=== PATIENT | male | born 1940 | race Caucasian/White ===

== ENCOUNTER 2019-07-25 08:34 | Emergency (ER) | payer OTHER ==
[2019-07-25 09:06] LABS: Absolute Lymphocytes (CBC) 1.9 K/uL (0.7-4.9); Basophils % 1.8 % (0-1.3); Hematocrit 47.7 % (39.6-49.0); Lymphocytes % 38.8 % (15.3-44.8); MPV 7.7 fL (7.6-11.3); RBC Red Blood Cell Count 5.07 M/uL (4.33-5.43)
[2019-07-25 09:10] LABS: Protime INR 1.4
--- NOTE | 2019-07-25 09:35 | RAD REPORT ---
EXAM DESCRIPTION: RAD - Chest Single View - 07/25/2019 9:08 am CLINICAL HISTORY: Chest pain COMPARISON: October 2018 TECHNIQUE: AP portable chest image was obtained 0902 hours . FINDINGS: Lungs are clear. No pulmonary edema. Interstitial pattern matches comparison. Heart size i s similar or fractionally increased from comparison. No vascular engorgement. No measurable pleural e ffusion and no pneumothorax. No acute bony abnormality seen. No acute aortic findings suspected. IMPRESSION: No acute cardiopulmonary process. No significant interval change.
[2019-07-25] MEDS ORDERED: NA CHLORIDE 0.9% 500 ML ONE (09:38)
[2019-07-25 10:07] LABS: ALT/SGPT 16 U/L (12-78); Albumin 3.9 g/dL (3.4-5.0); Alkaline Phosphatase 66 U/L (45-117); BUN Blood Urea Nitrogen 22 mg/dL (7-18); Bicarbonate 31 mmol/L (21-32); Bilirubin Direct 0.3 mg/dL (0-0.2); Glucose Level 114 mg/dL (74-106); Magnesium 2.4 mg/dL (1.8-2.4); NT PRO-BNP 263 pg/mL (<450); Sodium Level 140 mmol/L (136-145); Troponin (Emerg Dept Use Only) < 0.02 ng/mL (0.0-0.045)
[2019-07-25 10:08] LABS: AST/SGOT < 3 U/L (15-37)
--- NOTE | 2019-07-25 10:45 | RAD REPORT ---
EXAM DESCRIPTION: CT - Angio Aorta For Dissection - 07/25/2019 10:22 am CLINICAL HISTORY: . Chest and abdominal pain COMPARISON: None TECHNIQUE: Computed tomography angiography of the chest, abdomen pelvis were obtained. 100 cc Isovue 370 was administered intravenously. Coronal and sagittal reconstruction were performed. MIP 3D reconstruction was performed All CT scans are performed using dose optimization technique as appropriate and may include automated exposure control or mA/KV adjustment according to patient size. FINDINGS: An aortic dissection is not seen. A small bulge along the anterior aspect of the proximal descending thoracic aorta probably a ductus diverticulum. Mild arterial plaque. The celiac, SMA and TUCKER are patent . A lung consolidation is not present. A pericardial effusion is not seen. A pleural effusion is not n oted. Mild fatty infiltration liver. 4 centimeter low-density splenic mass unchanged. It probably is benign Pancreas adrenals kidneys demonstrate no significant abnormality. Diverticulosis. A 17 millimeter fatty structure lies adjacent to the proximal sigmoid colon. Prostate gland is mildly to moderately enlarged. Inguinal hernia repair IMPRESSION: Negative for an aortic dissection. 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
[2019-07-25 11:28] LABS: Urine Blood NEGATIVE (NEG); Urine Glucose NEGATIVE (NEG); Urine Protein NEGATIVE (NEG); Urine Specific Gravity 1.015 (1.005-1.030)
--- NOTE | 2019-07-25 12:57 | EDPHYS ---
Physician Documentation [facility] Name: Tani Serrano Age: 79 yrs Sex: Male : 1940 Arrival Date: 07/25/2019 Time: 08:36 Bed 5 Private MD: Edi Aponte V ED Physician Wisam De Leon HPI: 07/25 08:50 This 79 yrs old Male presents to ER via Unassigned with complaints of Chest snw Pain, Jaw Pain, Abdominal Pain. 08:50 Onset: The symptoms/episode began/occurred suddenly, this morning. Associated signs and snw symptoms: Pertinent positives: abdominal pain, chest pain. Modifying factors: The patient symptoms are alleviated by nothing. The patient has experienced similar episodes in the past, several times, but today's symptoms are worse, more painful. It is unknown whether or not the patient has recently seen a physician, sees Dr. Aponte. Sees Dr. Zuniga, recently placed on Eliquis. Dr. Aponte has urged pt to see GI for EGD. Historical: - Allergies: 08:45 No Known Allergies; ph - Home Meds: 08:53 Eliquis 5 mg oral tab 1 tab 2 times per day [Active]; CoQ-10 oral oral daily [Active]; iw - PSHx: 08:45 prostate; right shoulder; knee replacement, right; Appendectomy; ph 08:53 Cholecystectomy; iw - Immunization history:: Adult Immunizations not up to date. - Social history:: Smoking status: Patient/guardian denies using tobacco. - Ebola Screening: : No symptoms or risks identified at this time. ROS: 08:48 Constitutional: Negative for fever, chills, and weight loss, Eyes: Negative for injury, snw pain, redness, and discharge, ENT: Negative for injury, pain, and discharge, Neck: Negative for injury, pain, and swelling, Respiratory: Negative for shortness of breath, cough, wheezing, and pleuritic chest pain, Back: Negative for injury and pain, : Negative for injury, bleeding, discharge, and swelling, MS/Extremity: Negative for injury and deformity, Skin: Negative for injury, rash, and discoloration, Neuro: Negative for headache, weakness, numbness, tingling, and seizure. 08:48 Cardiovascular: Positive for chest pain, palpitations. 08:48 Abdomen/GI: Positive for abdominal pain, of the left upper quadrant. Exam: 08:48 Constitutional: This is a well developed, well nourished patient who is awake, alert, snw and in no acute distress. Head/Face: Normocephalic, atraumatic. Eyes: Pupils equal round and reactive to light, extra-ocular motions intact. Lids and lashes normal. Conjunctiva and sclera are non-icteric and not injected. Cornea within normal limits. Periorbital areas with no swelling, redness, or edema. ENT: Nares patent. No nasal discharge, no septal abnormalities noted. Tympanic membranes are normal and external auditory canals are clear. Oropharynx with no redness, swelling, or masses, exudates, or evidence of obstruction, uvula midline. Mucous membranes moist. Neck: Trachea midline, no thyromegaly or masses palpated, and no cervical lymphadenopathy. Supple, full range of motion without nuchal rigidity, or vertebral point tenderness. No Meningismus. Chest/axilla: Normal chest wall appearance and motion. Nontender with no deformity. No lesions are appreciated. Cardiovascular: Regular rate and rhythm with a normal S1 and S2. No gallops, murmurs, or rubs. Normal PMI, no JVD. No pulse deficits. Respiratory: Lungs have equal breath sounds bilaterally, clear to auscultation and percussion. No rales, rhonchi or wheezes noted. No increased work of breathing, no retractions or nasal flaring. 08:48 Back: No spinal tenderness. No costovertebral tenderness. Full range of motion. Skin: Warm, dry with normal turgor. Normal color with no rashes, no lesions, and no evidence of cellulitis. MS/ Extremity: Pulses equal, no cyanosis. Neurovascular intact. Full, normal range of motion. Neuro: Awake and alert, GCS 15, oriented to person, place, time, and situation. Cranial nerves II-XII grossly intact. Motor strength 5/5 in all extremities. Sensory grossly intact. Cerebellar exam normal. Normal gait. Psych: Awake, alert, with orientation to person, place and time. Behavior, mood, and affect are within normal limits. 08:48 Abdomen/GI: Inspection: abdomen appears normal, Bowel sounds: diminished, in all quadrants, Palpation: moderate abdominal tenderness, in the left upper quadrant. 08:52 ECG was reviewed by the Attending Physician. snw Vital Signs: 08:53 BP 150 / 69; Pulse 72; Resp 16; Temp 98.0; Pulse Ox 99% on R/A; Weight 97.52 kg; Height iw 6 ft. 4 in. (193.04 cm); Pain 5/10; 09:53 BP 132 / 62; Pulse 64; Resp 16; Pulse Ox 98% on R/A; Pain 3/10; ph 10:50 BP 128 / 66; Pulse 63; Resp 17; Pulse Ox 98% on R/A; tw2 11:52 BP 135 / 69; Pulse 71; Resp 22; Pulse Ox 96% on R/A; tw2 13:00 BP 126 / 68; Pulse 69; Resp 16; Temp 97.6; Pulse Ox 100% on R/A; ph 08:53 Body Mass Index 26.17 (97.52 kg, 193.04 cm) iw MDM: 09:05 Patient medically screened. snw 12:57 Data reviewed: vital signs, nurses notes. Data interpreted: Pulse oximetry: on room air snw is 96 %. Interpretation: acceptable. Counseling: I had a detailed discussion with the patient and/or guardian regarding: the historical points, exam findings, and any diagnostic results supporting the discharge/admit diagnosis, lab results, radiology results, the need for outpatient follow up, for definitive care, to return to the emergency department if symptoms worsen or persist or if there are any questions or concerns that arise at home. Special discussion: Based on the patient's history, exam, and Dx evaluation, there is no indication for emergent intervention or inpatient Tx. It is understood by the patient/guardian that if the Sx's persist or worsen they need to return immediately for re-evaluation. Based on the patient's Hx, exam, and Dx evaluation, there is no indication for emergent surgery or inpatient Tx. It is understood by the patient/guardian that if the Sx's persist or worsen they need to return immediately for re-evaluation. Based on the history and exam findings, there is no indication for further emergent testing or inpatient evaluation. I discussed with the patient/guardian the need to see the primary care provider for further evaluation of the symptoms. 07/25 08:38 Order name: Basic Metabolic Panel; Complete Time: 10:09 snw 07/25 08:38 Order name: CBC with Diff snw 07/25 08:38 Order name: LFT's; Complete Time: 10:09 snw 07/25 08:38 Order name: Magnesium; Complete Time: 10:09 snw 07/25 08:38 Order name: NT PRO-BNP; Complete Time: 10:09 snw 07/25 08:38 Order name: PT-INR snw 07/25 08:38 Order name: Troponin (emerg Dept Use Only); Complete Time: 10:09 snw 07/25 08:38 Order name: XRAY Chest (1 view); Complete Time: 09:53 snw 07/25 08:47 Order name: CT Aorta for Dissection; Complete Time: 10:59 snw 07/25 09:08 Order name: CBC with Automated Diff; Complete Time: 09:12 EDMS 07/25 09:13 Order name: Protime (+INR); Complete Time: 09:20 EDMS 07/25 11:13 Order name: Urine Dipstick--Ancillary (enter results); Complete Time: 11:35 eb 07/25 11:14 Order name: Troponin (emerg Dept Use Only): repeat trop please; Complete Time: 12:03 eb 07/25 08:38 Order name: EKG; Complete Time: 08:48 snw 07/25 08:38 Order name: Cardiac monitoring; Complete Time: 09:06 snw 07/25 08:38 Order name: EKG - Nurse/Tech; Complete Time: 09:06 snw 07/25 08:38 Order name: IV Saline Lock; Complete Time: 09:06 snw 07/25 08:38 Order name: Labs collected and sent; Complete Time: 09:06 snw 07/25 08:38 Order name: O2 Per Protocol; Complete Time: 09:06 snw 07/25 08:38 Order name: O2 Sat Monitoring; Complete Time: 09:06 snw 07/25 11:14 Order name: Diet Heart Healthy; Complete Time: 11:15 eb EC:52 Rate is 82 beats/min. Rhythm is irregular. QRS [place] is Normal. ID interval is normal. snw QRS interval is normal. QT interval is normal. ST Segment is depressed in leads V2, V3. Clinical impression: NSR w/ Non-specific ST/T Changes. Administered Medications: 09:52 Drug: NS 0.9% 1000 ml Route: IV; Rate: 50 ml/hr; Site: right forearm; ph 13:20 Follow up: Response: No adverse reaction; IV Status: Completed infusion; IV Intake: ph 175ml Disposition: 15:00 Co-signature as Attending Physician, Wisam De Leon MD. rn Disposition: 07/25/19 12:55 Discharged to Home. Impression: Upper abdominal pain, unspecified, Epiploic appendigitis, Chest pain, unspecified, Palpitations. - Condition is Stable. - Discharge Instructions: Abdominal Pain, Adult, Nonspecific Chest Pain, Palpitations, Upper Endoscopy. - Prescriptions for Gas- X Extra Strength - take 1 unit by ORAL route 1-2 times daily; 1 box. - Medication Reconciliation Form, Thank You Letter, Antibiotic Education, Prescription Opioid Use form. - Follow up: Edi Aponte MD; When: 2 - 3 days; Reason: Recheck today's complaints, Continuance of care, Re-evaluation by your physician. Follow up: Emergency Department; When: As needed; Reason: Trouble breathing. Signatures: Dispatcher [employer] EDMS Lilliam Carmen, INVESTIGATIVE RESEARCH SPECIALIST-C INVESTIGATIVE RESEARCH SPECIALIST-Csnw Connie Weller RN RN iw Nieto, Roman, MD MD rn Hall, Patricia, RN RN ph Corrections: (The following items were deleted from the chart) 13:23 12:55 07/25/2019 12:55 Discharged to Home. Impression: Upper abdominal pain, ph unspecified; Epiploic appendigitis; Chest pain, unspecified; Palpitations. Condition is Stable. Forms are Medication Reconciliation Form, Thank You Letter, Antibiotic Education, Prescription Opioid Use. Follow up: Edi Aponte; When: 2 - 3 days; Reason: Recheck today's complaints, Continuance of care, Re-evaluation by your physician. Follow up: Emergency Department; When: As needed; Reason: Trouble breathing. snw
--- NOTE | 2019-07-25 12:57 | ER ---
Nurse's Notes [facility] Name: Tani Serrano Age: 79 yrs Sex: Male : 1940 Arrival Date: 07/25/2019 Time: 08:36 Bed 5 Private MD: Edi Aponte V Diagnosis: Upper abdominal pain, unspecified;Epiploic appendigitis;Chest pain, unspecified;Palpitations Presentation: 07/25 08:49 Presenting complaint: Patient states: woke up out of sleep about 5 am felt like his heart as racing and skipping , also is having left sided abd pain that is chronic. Transition of care: patient was not received from another setting of care. Onset of symptoms was July 25, 2019. Risk Assessment: Do you want to hurt yourself or someone else? Patient reports no desire to harm self or others. Initial Sepsis Screen: Does the patient meet any 2 criteria? No. Patient's initial sepsis screen is negative. Does the patient have a suspected source of infection? No. Patient's initial sepsis screen is negative. Care prior to arrival: None. 08:49 Method Of Arrival: Wheelchair iw 08:49 Acuity: YOJANA 3 iw Historical: - Allergies: 08:45 No Known Allergies; ph - Home Meds: 08:53 Eliquis 5 mg oral tab 1 tab 2 times per day [Active]; CoQ-10 oral oral daily [Active]; iw - PSHx: 08:45 prostate; right shoulder; knee replacement, right; Appendectomy; ph 08:53 Cholecystectomy; iw - Immunization history:: Adult Immunizations not up to date. - Social history:: Smoking status: Patient/guardian denies using tobacco. - Ebola Screening: : No symptoms or risks identified at this time. Screenin:44 Abuse screen: Denies threats or abuse. Denies injuries from another. Nutritional ph screening: No deficits noted. Tuberculosis screening: No symptoms or risk factors identified. 08:53 Fall Risk None identified. iw Assessment: 09:02 General: Appears in no apparent distress. comfortable, slender, well groomed, Behavior ph is calm, cooperative, appropriate for age, Denies fever, feeling ill. Pain: Complains of pain in chest and abdomen Pain radiates to left jaw Pain currently is 2 out of 10 on a pain scale. Quality of pain is described as sharp, Pain began at approx 0530 this morning Is intermittent. Neuro: Level of Consciousness is awake, alert, obeys commands, Oriented to person, place, time, situation, Denies weakness dizziness. Cardiovascular: Reports chest pain, palpitations, Denies nausea, shortness of breath, Capillary refill < 3 seconds in bilateral fingers Patient's skin is warm and dry. Rhythm is atrial fibrillation Chest pain quality is sharp, is located in left anterior chest wall radiates to left jaw(s) began 4 hours prior to arrival episodes are intermittent. Respiratory: Airway is patent Respiratory effort is even, unlabored, Respiratory pattern is regular, symmetrical, Denies cough, shortness of breath. GI: Reports upper abdominal pain, Patient currently denies diarrhea, nausea, vomiting. Derm: Skin is intact, is healthy with good turgor, Skin is pink, warm \T\ dry. Musculoskeletal: Circulation, motion, and sensation intact. Range of motion: intact in all extremities. 09:52 Reassessment: Patient appears in no apparent distress at this time. Patient and/or family updated on plan of care and expected duration. Pain level reassessed. Patient is alert, oriented x 3, equal unlabored respirations, skin warm/dry/pink. Pt resting comfortably w/ stable vitals, continues to rate pain 3/10, denies SOB or nausea, awaiting lab results, SO at bedside. 10:50 Reassessment: Patient appears in no apparent distress at this time. No changes from tw2 previously documented assessment. Patient and/or family updated on plan of care and expected duration. Pain level reassessed. Patient is alert, oriented x 3, equal unlabored respirations, skin warm/dry/pink. 11:52 Reassessment: Patient appears in no apparent distress at this time. No changes from tw2 previously documented assessment. Patient and/or family updated on plan of care and expected duration. Pain level reassessed. Patient is alert, oriented x 3, equal unlabored respirations, skin warm/dry/pink. 11:54 Reassessment: Awaiting results of repeat cardiac enzymes. ph Vital Signs: 08:53 BP 150 / 69; Pulse 72; Resp 16; Temp 98.0; Pulse Ox 99% on R/A; Weight 97.52 kg; Height iw 6 ft. 4 in. (193.04 cm); Pain 5/10; 09:53 BP 132 / 62; Pulse 64; Resp 16; Pulse Ox 98% on R/A; Pain 3/10; ph 10:50 BP 128 / 66; Pulse 63; Resp 17; Pulse Ox 98% on R/A; tw2 11:52 BP 135 / 69; Pulse 71; Resp 22; Pulse Ox 96% on R/A; tw2 13:00 BP 126 / 68; Pulse 69; Resp 16; Temp 97.6; Pulse Ox 100% on R/A; ph 08:53 Body Mass Index 26.17 (97.52 kg, 193.04 cm) iw ED Course: 08:36 Patient arrived in ED. mr 08:36 Edi Aponte MD is Private Physician. mr 08:38 Lilliam Carmen FNP-C [facility]. snw 08:38 Wisam De Leon MD is Attending Physician. snw 08:44 Temitope Vicente, RN is Primary Nurse. ph 08:46 Patient has correct armband on for positive identification. Placed in gown. Bed in low ph position. Call light in reach. Side rails up X 1. ekg monitor tech on. Pulse ox on. NIBP on. Door closed. Noise minimized. Warm blanket given. 08:51 Triage completed. iw 08:53 Arm band placed on. iw 08:55 EKG done, by certified medical technician assistant. reviewed by Lilliam SAINI. at1 09:02 Initial lab(s) drawn, by va, sent to lab. Inserted saline lock: 20 gauge in right ph forearm, using aseptic technique. Blood collected. Patient maintains SpO2 saturation greater than 95% on room air. 09:31 XRAY Chest (1 view) In Process Unspecified. EDMS 10:23 CT Aorta for Dissection In Process Unspecified. EDMS 12:53 Edi Aponte MD is Referral Physician. snw 13:00 No provider procedures requiring assistance completed. IV discontinued, intact, ph bleeding controlled, No redness/swelling at site. Pressure dressing applied. Administered Medications: 09:52 Drug: NS 0.9% 1000 ml Route: IV; Rate: 50 ml/hr; Site: right forearm; ph 13:20 Follow up: Response: No adverse reaction; IV Status: Completed infusion; IV Intake: ph 175ml Intake: 13:20 IV: 175ml; Total: 175ml. ph Outcome: 12:55 Discharge ordered by MD. chavis 13:23 Patient left the ED. ph 13:23 Discharged to home ambulatory, with significant other. ph 13:23 Condition: good 13:23 Discharge instructions given to patient, Instructed on discharge instructions, follow up and referral plans. medication usage, Demonstrated understanding of instructions, follow-up care, medications, Prescriptions given X 1. Signatures: Dispatcher [employer] EDMS Lilliam Carmen, CONCRETE GUN OPERATOR-C CONCRETE GUN OPERATOR-Csnw Justino Dinora Connie Mercdao, RN RN iw Lakeisha Perez, mannequin mold maker EKG Tat1 Temitope Vicente RN RN Ange Pyle RN RN tw2 Corrections: (The following items were deleted from the chart) 14:30 14:29 IV Status: Completed infusion; IV Intake: 175ml ph ph 14:30 14:30 Response: No adverse reaction; IV Status: Completed infusion; IV Intake: 175ml ph ph
[2019-07-25 13:36] VITALS: TEMP 98
[2019-07-25 13:40] VITALS: BP 135/69; O2SAT 96
--- NOTE | 2019-07-25 16:35 | EKG ---
Test Date: 2019-07-25 Test Time: 08:51:42 Key Filer: ANGEL MEASUREMENT RESULTS: Intervals: Rate: 82 SD: 152 QRSD: 88 QT: 392 QTc: 457 [place]: P: 76 SD: 152 QRS: 53 T: 63 INTERPRETIVE STATEMENTS: Sinus rhythm with marked sinus arrhythmia Nonspecific ST and T wave abnormality Abnormal ECG Compared to ECG 09/19/2005 22:50:00 ST (T wave) deviation now present Sinus bradycardia no longer present Electronically Signed On 07-25-19 16:33:53 LOCOMOTIVE CRANE OPERATOR by Tae Brice
== END 2019-07-25 13:23 | disposition home or self-care (01) ==
LOC: ER 08:34
DX: R07.9 Chest pain, unspecified (principal); R00.2 Palpitations; K63.89 Other specified diseases of intestine; R10.10 Upper abdominal pain, unspecified
CPT/HCPCS: 96361; 93005; 85025; 80048; 36415; 83735; 85610; 80076; 81003; 84484 ×2; 83880; 71275; 74175; 71045; 96360; 99285; Q9967; J7040

== ENCOUNTER 2019-08-15 06:56 | Day surgery (SDC) | payer OTHER ==
[2019-08-14 11:39] LABS: Absolute Lymphocytes (CBC) 1.8 K/uL (0.7-4.9); Basophils % 1.2 % (0-1.3); Hematocrit 51.9 % (39.6-49.0); MPV 7.9 fL (7.6-11.3); RBC Red Blood Cell Count 5.58 M/uL (4.33-5.43)
[2019-08-14 11:46] LABS: Protime INR 1.44
[2019-08-14 11:47] LABS: Potassium 4.6 mmol/L (3.5-5.1)
[2019-08-15] MEDS ORDERED: NA CHLORIDE 0.9% 500 ML ONE (07:21)
[2019-08-15] MEDS ORDERED: FLUMAZENIL 0.1 MG/ML (5 mL VIAL) IV ONE (07:51)
[2019-08-15] MEDS ORDERED: MIDAZOLAM HCL 5 MG/5 ML INJ ONE (07:51)
[2019-08-15] MEDS ORDERED: ATROPINE SULF 1 MG/10 ML SYR IV ONE (07:51)
[2019-08-15] MEDS ORDERED: DRONEDARONE 400 MG TAB PO ONE (08:01)
[2019-08-15 09:46] VITALS: BP 111/74; TEMP 97.2; O2SAT 98
--- NOTE | 2019-08-15 12:17 | EKG ---
Test Date: 2019-08-15 Test Time: 09:06:11 Appeals Analyst: ANGEL MEASUREMENT RESULTS: Intervals: Rate: 74 VT: 168 QRSD: 90 QT: 418 QTc: 463 [place]: P: 73 VT: 168 QRS: 49 T: 61 INTERPRETIVE STATEMENTS: Sinus rhythm with premature atrial complexes Otherwise normal ECG Compared to ECG 07/25/2019 08:51:42 Atrial premature complex(es) now present Sinus arrhythmia no longer present ST (T wave) deviation no longer present Electronically Signed On 08-15-19 12:16:35 ADMISSIONS EVALUATOR by Mike Zuniga
--- NOTE | 2019-08-15 17:55 | OP ---
Surgeon: Mike Zuniga MD Identification: 79-year-old man. Procedure: Direct current cardioversion. Indication: Atrial fibrillation. History Of Present Illness: The patient had been in AFib for several weeks. He has been on Eliquis 5 mg twice a day for at least 2 weeks. He was brought to the cardiac sanitation laborer in a fasting state, se dated with Versed 7 mg total was used. Adequate sedation was demonstrated. Anterior and posterior p addles were placed in the patient's chest. A single shock of 200 joules was given synchronized to th e QRS complex. This resulted in sinus rhythm with no complications. LOUIS/CARA Voice ID: [id number] Report ID: [id number]
== END 2019-08-15 09:40 | disposition home or self-care (01) ==
LOC: CCL 06:56
PROVIDERS: ATTEND Internal Medicine
PROC: 5A2204Z Restoration of Cardiac Rhythm, Single (ICD-10-PCS; principal; 2019-08-15)
DX: I48.0 Paroxysmal atrial fibrillation (principal); I25.10 Atherosclerotic heart disease of native coronary artery without angina pectoris
CPT/HCPCS: 93005; 85025; 80048; 36415; 85610; 85730; 92960; J2250; J7040

== ENCOUNTER 2020-09-13 06:28 | Day surgery (SDC) | payer OTHER ==
[2020-09-10 10:41] LABS: Potassium 3.9 mmol/L (3.5-5.1)
[2020-09-10 10:50] LABS: Absolute Lymphocytes (CBC) 1.6 K/uL (0.7-4.9); Basophils % 1.7 % (0-1.3); Lymphocytes % 39.6 % (15.3-44.8); MPV 7.4 fL (7.6-11.3)
[2020-09-10 11:02] LABS: Protime INR 1.29
--- NOTE | 2020-09-10 12:29 | RAD REPORT ---
EXAM DESCRIPTION: RAD - Chest Pa And Lat (2 Views) - 09/10/2020 11:47 am CLINICAL HISTORY: preop, pending cardiac catheterization COMPARISON: Portable July 2019 TECHNIQUE: Frontal and lateral views of the chest were obtained. FINDINGS: The lungs are clear of an acute infiltrate, failure or volume overload finding. Interstiti al pattern matches comparison. Heart size is normal and central vasculature is within normal limits . No pleural effusion or pneumothorax seen. No acute bony finding noted. No aortic abnormality. IMPRESSION: No acute cardiopulmonary process. No significant change from comparison.
--- OUTSIDE RECORDS SUMMARY | 2020-09-13 06:31 | XMS REPORT | Continuity of Care Document ---
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[facility] spondylosis Neuro (disorder) Spinal stenosis Active Problem 01/02/2019 Mis ayde of lumbar region Angus ro (disorder) Medications No Data Provided for This Section Allergies, Adverse Reactions, Alerts Substance Category Reaction Severity Reaction Status Date Comments S ource type Reported No Known Assertion Drug Misch er Medication allergy Neuro Allergies Immunizations No Data Provided for This Section Results No Data Provided for This Section Pathology Reports No Data Provided for This Section Diagnostic Reports No Data Provided for This Section Consultation Notes No Data Provided for This Section Discharge Summaries No Data Provided for This Section History and Physicals No Data Provided for This Section Vital Signs No Data Provided for This Section Encounters Location Location Encounter Encounter Reason Attending ADM [facility] Source Details Type Number For Provider Date Date Visit Outpatient [id number] CANADIAN 04/12 Formerly named [facility] [place] [facility] Phone [phone] 09/13 09/15 [facility] Neuro Outpatient [id number] DONY 06/14 [facility] [place] [facility] Outpatient [id number] Dony 06/14 06/15 [facility] [place] Procedures Procedure Code Date Perfomer Comments Source Appendectomy [id number] [facility] Neur o Arthroplasty of [id number] [facility] N euro knee Procedure on [id number] [facility] Ne[facility] o shoulder Repair of inguinal [id number] [facility] r Neuro hernia Transurethral [id number] [facility] Angus ro resection of prostate Assessment and Plan No Data Provided for This Section Plan of Care No Data Provided for This Section Social History Social History Date Source Social History TypeResponse 02/10/2016 [facility] Smoking Status Never smoker; Exposure to Tobacco Smoke None; Cigarette Smoking Last 365 Days No; Reg Smoking Cessation Counseling No entered on: 02/10/16 Family History No Data Provided for This Section Advance Directives No Data Provided for This Section Functional Status No Data Provided for This Section
--- OUTSIDE RECORDS SUMMARY | 2020-09-13 06:31 | XMS REPORT | Clinical Summary ---
:1940 Author Organization [facility] Address [address] [place] [address] Care Team Providers Name Role Phone MD Fay Primary Care Provider Allergies No Known Active Allergies Medications Medication Sig Dispensed Refills Start Date End Date Status naproxen-esomeprazole Take by mouth. 0 Active 500-20 mg tablet,IR & delay rel,biphasic ibuprofen-famotidine Take by mouth. 0 Active 800-26.6 mg tablet gabapentin enacarbil 300 Take by mouth. 0 Active mg tablet extended release gabapentin (GRALISE) 600 Take by mouth. 0 Active mg tablet extended release 24 hr aspirin (ECOTRIN) 81 MG Take 81 mg by 0 Active enteric coated tablet mouth daily. rosuvastatin (CRESTOR) 0 2019 Active 20 MG tablet Active Problems Problem Noted Date Colon cancer screening 06/16/2019 Diverticulosis Left lower quadrant pain Surgical History Surgery Date Site/Laterality Comments KNEE SURGERY SHOULDER SURGERY CARPAL TUNNEL RELEASE COLONOSCOPY INGUINAL HERNIA REPAIR EYE SURGERY ARM SKIN LESION BIOPSY / EXCISION Medical History Medical History Date Comments Colon cancer screening Hiatus hernia syndrome Diverticulosis Left lower quadrant pain Family History Relation Name Status Comments Father Mother Social History Tobacco Use Types Packs/Day Years Used Date Never Smoker Smokeless Tobacco: Never Used Alcohol Use Drinks/Week oz/Week Comments Not Currently Sex Assigned at Date Recorded Not on file Last Filed Vital Signs Not on file Plan of Treatment Health Maintenance Due Date Last Done Comments COVID-19 VACCINE (1 of 2) 1956 SHINGLES VACCINES (#1) 1990 65+ PNEUMOCOCCAL VACCINE (1 of 1 - PPSV23) 2005 INFLUENZA VACCINE 03/06/2020 Results Not on fileafter 09/13/2019 (Home) [place] [address] Advance Directives For more information, please contact: [phone] Type Date Recorded Patient Die Baker Explanati on Advance Directives, Living Will and 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
[2020-09-13] MEDS ORDERED: HEPA 1000U/500MLS 1,000 UNIT/500 ML BAG IV ONE (06:55)
[2020-09-13] MEDS ORDERED: LIDOCAINE 1% 20 ML MDV ONE (06:55)
[2020-09-13] MEDS ORDERED: NA CHLORIDE 0.9% 500 ML ONE (07:04)
[2020-09-13] MEDS ORDERED: FENTANYL CITR 100 MCG/2 ML ONE (07:37)
[2020-09-13] MEDS ORDERED: MIDAZOLAM HCL 2 MG/2 ML INJ ONE ×2 (07:37→07:58)
[2020-09-13] MEDS ORDERED: ATROPINE SULF 1 MG/10 ML SYR IV ONE (07:38)
[2020-09-13] MEDS ORDERED: NA CHLORIDE 0.9% 0 ML ONE (07:38)
--- NOTE | 2020-09-13 08:28 | OP ---
Surgeon: Tae Brice MD Docent Coordinator: Dianna Lombardi. Procedure: Left heart catheterization and selective coronary arteriogram. Indication: Unstable angina. Procedure In Detail: Mr. Serrano is 80-year-old, has a history of paroxysmal atrial fibrillation, for which he takes Coreg and Eliquis. His Eliquis was stopped couple of days ago. He had symptoms consi stent with unstable angina. A catheterization was planned for today as an outpatient. The patient w as prepped and draped in the routine sterile fashion, given Versed for sedation. A 6-Bulgarian sheath w as introduced in the right common femoral artery successfully using the Seldinger technique, 10 cc of Xylocaine. Angiography there was normal. Angio-Seal was used to close the case. Mi catheter left and right were used to cannulate the left main and right main respectively. He was found to hav e about a 40-50% mid RCA stenosis with 30-40% proximal and mid LAD stenosis, 70% distal LAD stenosis, and a vessel that is about 1.5 mm in size, an 80% OM stenosis, small vessel and 99% diagonal small v essel. The left main was normal. The actual circumflex itself was normal. He was right dominant. There were no complications. Blood loss was 5 mL. The patient tolerated the procedure well. Postoperative Diagnosis: Moderate to severe coronary artery disease. Plan: Plan is for medical therapy. I am going to re-discuss the issue of statin with the patient. If he is truly allergic to it, we will put him on Repatha. I am going to put him on Imdur. I am goi ng to increase his carvedilol. Continue the Eliquis starting tomorrow. The patient will be at [facility] for 2 hours. Anesthesia: Total conscious sedation was 45 minutes. NB/MODL Voice ID: [id number] Report ID: [id number]
[2020-09-13 09:48] VITALS: BP 112/67; TEMP 96.9; O2SAT 100
== END 2020-09-13 10:18 | disposition home or self-care (01) ==
LOC: CCL 06:28
DX: I25.110 Atherosclerotic heart disease of native coronary artery with unstable angina pectoris (principal); I48.0 Paroxysmal atrial fibrillation; Z79.01 Long term (current) use of anticoagulants; Z20.822 Contact with and (suspected) exposure to COVID-19; I34.1 Nonrheumatic mitral (valve) prolapse; E78.2 Mixed hyperlipidemia
CPT/HCPCS: 85025; 80048; 36415; 85610; 85730; 71046; 93454; U0002; C1893; C1760; J2250; J3010; J7040; J1644; J0583

== ENCOUNTER 2022-03-09 06:30 | Day surgery (SDC) | payer OTHER ==
--- NOTE | 2022-03-03 11:02 | RAD REPORT ---
EXAM DESCRIPTION: RAD - Chest Pa And Lat (2 Views) - 03/03/2022 10:56 am CLINICAL HISTORY: pre procedure COMPARISON: Chest Pa And Lat (2 Views) dated 09/10/2020; Chest Single View dated 07/25/2019; Chest Pa And Lat (2 Views) dated 10/28/2018; Chest Pa And Lat (2 Views) dated 02/25/2016 FINDINGS: Lines: None. Lungs: No evidence of edema or pneumonia. Pleural: No significant pleural effusions or pneumothorax. Cardiac: The heart size is within normal limits. Bones: No acute fractures. Other: IMPRESSION: No acute cardiopulmonary disease.
[2022-03-03 12:00] LABS: Absolute Lymphocytes (CBC) 1.5 K/uL (0.7-4.9); Hematocrit 43.2 % (39.6-49.0); Lymphocytes % 39.8 % (15.3-44.8); MCV 94.1 fL (80-100); MPV 7.5 fL (7.6-11.3); RBC Red Blood Cell Count 4.59 M/uL (4.33-5.43)
[2022-03-03 12:09] LABS: Protime INR 1.57
[2022-03-03 12:14] LABS: Potassium 4.6 mmol/L (3.5-5.1)
[2022-03-03 12:31] LABS: SARS-CoV-2 Antigen Rapid Res Negative (Negative)
[2022-03-09] MEDS ORDERED: HEPA 1000U/500MLS 2,000 UNIT/1,000 ML BAG IV ONE (06:48)
[2022-03-09] MEDS ORDERED: NA CHLORIDE 0.9% 500 ML ONE (06:48)
[2022-03-09] MEDS ORDERED: LIDOCAINE 1% MPF 5 ML VIAL ONE (06:48)
[2022-03-09] MEDS ORDERED: MIDAZOLAM HCL 2 MG/2 ML INJ ONE (07:01)
[2022-03-09] MEDS ORDERED: FENTANYL CITR 100 MCG/2 ML ONE (07:01)
[2022-03-09] MEDS ORDERED: NA CHLORIDE 0.9% 50 ML IV ONE (07:02)
[2022-03-09] MEDS ORDERED: ATROPINE SULF 1 MG/10 ML SYR IV ONE (07:02)
[2022-03-09] MEDS ORDERED: NITROGLYCERIN 100 MCG/ML SYR (for cath lab use only) IV ONE (07:02)
[2022-03-09] MEDS ORDERED: NITROGLYCERIN/D5W 25 MG/250 ML BTL IV ONE (07:03)
[2022-03-09] MEDS ORDERED: PRASUGREL (EFFIENT) 10 MG TAB ONE (08:04)
[2022-03-09] MEDS ORDERED: ASPIRIN 325 MG TAB ONE (08:04)
--- NOTE | 2022-03-09 08:45 | OP ---
Surgeon: Tae Brice MD Benefits Representative: Ms. Liya Altamirano. The patient will go home after 2 hours of bedrest and observation early afternoon. I will see him in the office in 2 weeks. He will resume his Eliquis tomorrow. A prescription for Plavix was given as well. Admitted to my service as an outpatient today 03/09/2022. He underwent left heart catheterization, s elective coronary arteriogram, common femoral artery angiogram, and primary stent of the mid LAD. Indication: Unstable angina. Mr. Serrano is 81. Has had paroxysmal AFib, hypertension, dyslipidemia, held his Eliquis for 48 hours. Procedure In Detail: Brought to the skilled labor today as an outpatient, prepped and draped in routine s terile fashion. Given Versed and fentanyl for sedation. A 6-Belarusian sheath introduced in the right c ommon femoral artery successfully using 10 cc of Xylocaine and the Seldinger technique. Angiography there was normal. Angio-Seal was used to close the case. Coronary catheterization of the left main and the right main were done using Mi catheter. The RCA was dominant with minor plaquing throug hout. No focal stenosis. Circumflex itself was normal. There was a 70% ostial medium-size obtuse m arginal lesion. The LAD had about a 30% to 40% proximal stenosis. He had an 80% mid LAD stenosis, a bout a 40% to 50% very distal LAD stenosis. We decided to intervene with the LAD. An XBLAD 3.5 guid e with side hole was used to cannulate the left main. A Humphrey wire was used to cross the lesion suc cessfully. A 3.0 x 20 Synergy was placed in the lesion at 11 atmospheres for 30 seconds with 0% resi dual. Intracoronary nitroglycerin was given. Angiography was perfectly normal after the stent. The re were no dissection or thrombus. The patient received Angiomax, aspirin, and Effient during the pr ocedure. Anesthesia: Total conscious sedation 45 minutes. Complications: No complication. Blood Loss: 5 mL. Postoperative Diagnosis: Coronary artery disease, status post successful primary stent of the mid LA D. The rest will be medical therapy. NB/MODL Voice ID: [id number] Report ID: [id number]
[2022-03-09 14:21] VITALS: O2SAT 99
[2022-03-09 15:20] VITALS: BP 118/56
== END 2022-03-09 15:00 | disposition home or self-care (01) ==
LOC: CCL 06:30
DX: I25.110 Atherosclerotic heart disease of native coronary artery with unstable angina pectoris (principal); I34.1 Nonrheumatic mitral (valve) prolapse; I48.0 Paroxysmal atrial fibrillation; I10 Essential (primary) hypertension; E78.2 Mixed hyperlipidemia; Z79.01 Long term (current) use of anticoagulants; Z79.899 Other long term (current) drug therapy; Z20.822 Contact with and (suspected) exposure to COVID-19; Z82.49 Family history of ischemic heart disease and other diseases of the circulatory system
CPT/HCPCS: 85025; 80048; 36415; 85610; 85347 ×4; 85730; 71046; 93454; 87811; C1893; C1760; Q9967; G0269; C1725; C1877; C9600; J2250; J3010; J0583; J7040; J1644

== ENCOUNTER 2023-01-01 08:31 | Observation (INO) | payer OTHER ==
[2023-01-01 08:57] LABS: Absolute Lymphocytes (CBC) 1.2 K/uL (0.7-4.9); Hematocrit 45.2 % (39.6-49.0); Lymphocytes % 25.5 % (15.3-44.8); MCV 95.1 fL (80-100); MPV 7.2 fL (7.6-11.3); RBC Red Blood Cell Count 4.75 M/uL (4.33-5.43)
[2023-01-01 09:02] LABS: Protime INR 1.55
[2023-01-01 09:24] LABS: Albumin 3.7 g/dL (3.4-5.0); Bilirubin Direct 0.2 mg/dL (0-0.2); Bilirubin Indirect, Calculated 0.7 mg/dL (0.2-0.8); Bilirubin Total 0.9 mg/dL (0.2-1.0); Magnesium 2.3 mg/dL (1.6-2.4); Potassium 3.7 mEq/L (3.5-5.1); Protein, Total 7.6 g/dL (6.4-8.2); Troponin High Sensitivity 24.8 pg/mL (<58.9)
--- NOTE | 2023-01-01 09:32 | ER ---
Nurse's Notes [facility] Name: Tani Serrano Age: 82 yrs Sex: Male : 1940 Arrival Date: 01/01/2023 Time: 08:31 Bed 5 Private MD: Diagnosis: Chest pain, unspecified Presentation: 01/01 08:35 Chief complaint: Patient states: CP and R sided jaw/neck pain for several days, got ll1 worse last night. Coronavirus screen: Vaccine status: Patient reports receiving the 2nd dose of the covid vaccine. Client denies travel out of the [place] in the last 14 days. At this time, the client does not indicate any symptoms associated with coronavirus-19. Ebola Screen: Patient denies travel to an Ebola-affected area in the 21 days before illness onset. Initial Sepsis Screen: Does the patient meet any 2 criteria? No. Patient's initial sepsis screen is negative. Does the patient have a suspected source of infection? No. Patient's initial sepsis screen is negative. Risk Assessment: Do you want to hurt yourself or someone else? Patient reports no desire to harm self or others. Onset of symptoms was December 29, 2022. 08:35 Method Of Arrival: Ambulatory ll1 08:35 Acuity: YOJANA 3 ll1 Triage Assessment: 08:50 General: Appears in no apparent distress. Behavior is calm, cooperative, appropriate ll1 for age. Pain: Complains of pain in Chest, R jaw Quality of pain is described as pressure. Cardiovascular: Reports chest pain, palpitations, pain radiates into R jaw/neck area Heart tones S1 S2 Capillary refill < 3 seconds JVD is absent Patient's skin is warm and dry. Respiratory: Airway is patent Trachea midline Respiratory effort is even, unlabored, Respiratory pattern is regular, symmetrical. Historical: - Allergies: 08:44 No Known Allergies; ll1 - PMHx: 08:44 A fib HX; ll1 - PSHx: 08:44 A fib cardioversion; R shoulder SX with 5 pins; hernia repair; TURP; heart stent; ll1 - Immunization history:: Adult Immunizations up to date. - Social history:: Smoking status: Patient denies any tobacco usage or history of. - Family history:: not pertinent. - Hospitalizations: : No recent hospitalization is reported. Screenin:51 [facility] Fall Risk Assessment (Adult) Score/Fall Risk Level 0 - 2 = Low Risk ll1 Oriented to surroundings, Maintained a safe environment, Educated pt \T\ family on fall prevention, incl call for assistance when getting out of bed, Hourly rounding (assess needs \T\ fall precautionary measures) done. Abuse screen: Denies threats or abuse. Nutritional screening: No deficits noted. Tuberculosis screening: No symptoms or risk factors identified. Assessment: 08:51 Reassessment: No changes from previously documented assessment. Patient and/or family ll1 updated on plan of care and expected duration. Pain level reassessed. Patient is alert, oriented x 3, equal unlabored respirations, skin warm/dry/pink. 08:57 Reassessment: No changes from previously documented assessment. Patient and/or family ll1 updated on plan of care and expected duration. Pain level reassessed. 09:40 Reassessment: No changes from previously documented assessment. Patient and/or family ll1 updated on plan of care and expected duration. Pain level reassessed. Dr. De Leon at . Vital Signs: 08:35 BP 143 / 82; Pulse 82; Resp 16; Temp 97.9; Pulse Ox 100% on R/A; Weight 95.25 kg; ll1 Height 6 ft. 4 in. ; Pain 5/10; 10:11 BP 112 / 78; Pulse 72; Pulse Ox 99% on R/A; ll1 14:10 BP 114 / 83; Pulse 80; Resp 15; Pulse Ox 100% ; ll1 08:35 Body Mass Index 25.56 (95.25 kg, 193.04 cm) ll1 08:35 Pain Scale: Adult ll1 ED Course: 08:33 Patient arrived in ED. rn 08:33 Wisam De Leon MD is Attending Physician. rn 08:33 Arm band placed on Patient placed in an exam room, on a stretcher. ll1 08:44 Sameer Bingham, RIK is Primary Nurse. ll1 08:50 Triage completed. ll1 08:51 Inserted saline lock: 20 gauge in left antecubital area, using aseptic technique. Blood rs5 collected. 08:52 Patient has correct armband on for positive identification. Bed in low position. Call ll1 light in reach. Side rails up X2. Client placed on continuous cardiac and pulse oximetry monitoring. NIBP monitoring applied. cardiac monitor on. 08:52 Basic Metabolic Panel Sent. rs5 08:52 CBC with Diff Sent. rs5 08:52 LFT's Sent. rs5 08:52 Magnesium Sent. rs5 08:52 NT PRO-BNP Sent. rs5 08:53 PT-INR Sent. rs5 08:53 Troponin HS Sent. rs5 09:30 XRAY Chest (1 view) In Process Unspecified. EDMS 09:31 Edi Aponte MD is Hospitalizing Provider. rn 10:11 No provider procedures requiring assistance completed. Patient admitted, IV remains in ll1 place. 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 ll1 Outcome: 09:31 Decision to Hospitalize by Provider. rn 14:27 Patient left the ED. 1 Signatures: Dispatcher [employer] EDMS Wisam De Leon MD MD rn Lewis, Lynsay, RN RN ll1 Marco Antonio Lopez rs5 Corrections: (The following items were deleted from the chart) 08:57 08:35 BP 143 / 82; Pulse 82bpm; Resp 16bpm; Pulse Ox 100% RA; Temp 97.9F; ll1 ll1
--- NOTE | 2023-01-01 09:32 | EDPHYS ---
Physician Documentation [facility] Name: Tani Serrano Age: 82 yrs Sex: Male : 1940 Arrival Date: 01/01/2023 Time: 08:31 Bed 5 Private MD: ED Physician Wisam De Leon HPI: 01/01 08:40 This 82 yrs old Male presents to ER via Unassigned with complaints of chest pain. rn 08:40 The patient or guardian reports chest pain that is located primarily in the substernal rn area. Onset: last night. The pain radiates to the right shoulder, right neck, right jaw. Associated signs and symptoms: Pertinent positives: None. Pertinent negatives: abdominal pain, cough, diaphoresis, lower extremity pain, lower extremity swelling, near syncope, palpitations, shortness of breath, syncope, vomiting. The chest pain is described as squeezing. Duration: The patient or guardian reports multiple episodes, that are intermittent. Modifying factors: The symptoms are alleviated by nothing. the symptoms are aggravated by nothing. Severity of pain: At its worst the pain was moderate in the emergency department the pain is unchanged. The patient has not experienced similar symptoms in the past. The patient has not recently seen a physician. Pt reports chest pain, substernal, tight, radiates to right shoulder and right jaw, no trauma, no fever, no cough/sob, no abd pain. Takes flecainide/eliquis/plavix. Denies heart racing. NO syncope. + stent is LAD in past. Reports intermittent chest pain for 2 weeks, worse since last night. . Historical: - Allergies: 08:44 No Known Allergies; ll1 - PMHx: 08:44 A fib HX; ll1 - PSHx: 08:44 A fib cardioversion; R shoulder SX with 5 pins; hernia repair; TURP; heart stent; ll1 - Immunization history:: Adult Immunizations up to date. - Social history:: Smoking status: Patient denies any tobacco usage or history of. - Family history:: not pertinent. - Hospitalizations: : No recent hospitalization is reported. ROS: 08:40 Constitutional: Negative for fever, chills, and weight loss, Neck: + right neck/jaw rn pain Cardiovascular: + chest pain Respiratory: Negative for shortness of breath, cough, wheezing, and pleuritic chest pain, Abdomen/GI: Negative for abdominal pain, nausea, vomiting, diarrhea, and constipation, MS/Extremity: Negative for injury and deformity, Skin: Negative for injury, rash, and discoloration, Neuro: Negative for headache, weakness, numbness, tingling, and seizure. Exam: 08:40 Constitutional: This is a well developed, well nourished patient who is awake, alert, rn and in no acute distress. Head/Face: Normocephalic, atraumatic. Cardiovascular: Regular rate and rhythm. No pulse deficits. Respiratory: No increased work of breathing, no retractions or nasal flaring. Abdomen/GI: soft, non-tender Skin: Warm, dry MS/ Extremity: Pulses equal, no cyanosis. Neurovascular intact. Full, normal range of motion. Equal circumference. Neuro: Awake and alert, GCS 15, oriented to person, place, time, and situation. No facial droop. Motor strength 5/5 in all extremities. Sensory grossly intact. Cerebellar exam normal. Normal gait. 08:43 ECG was reviewed by the Attending Physician. rn Vital Signs: 08:35 BP 143 / 82; Pulse 82; Resp 16; Temp 97.9; Pulse Ox 100% on R/A; Weight 95.25 kg; ll1 Height 6 ft. 4 in. ; Pain 5/10; 10:11 BP 112 / 78; Pulse 72; Pulse Ox 99% on R/A; ll1 14:10 BP 114 / 83; Pulse 80; Resp 15; Pulse Ox 100% ; ll1 08:35 Body Mass Index 25.56 (95.25 kg, 193.04 cm) ll1 08:35 Pain Scale: Adult ll1 MDM: 08:34 Patient medically screened. rn 09:30 Differential diagnosis: acute myocardial infarction, acute pericarditis, anxiety, rn coronary artery disease chest wall pain, congestive heart failure costochondritis, gastritis, pleurisy, pneumonia, pneumothorax, stable angina, unstable angina. HEART Score: History: Moderately Suspicious (1), ECG: Non specific repolarization disturbance / LBTB / PM (1), Age: > or = 65 years (2), Risk Factors: 1 or 2 risk factors (1), Troponin: < or = 1 x Normal Limit (0), Total Score = 5. Data reviewed: vital signs, nurses notes, lab test result(s), EKG, radiologic studies, plain films, and as a result, I will admit patient. Consideration of Admission/Observation Patient was admitted/placed on observation. Escalation of care including admission/observation considered. Counseling: I had a detailed discussion with the patient and/or guardian regarding: the historical points, exam findings, and any diagnostic results supporting the discharge/admit diagnosis, lab results, radiology results, the need for further work-up and treatment in the hospital. Special discussion:. 09:42 ED course: Pt's chest pain improved, will admit to Dr. Aponte for further w/u. Trop neg. rn CXR clear.. 01/01 08:39 Order name: Basic Metabolic Panel; Complete Time: 09: rn 01/01 08:39 Order name: CBC with Diff; Complete Time: : rn 01/01 08:40 Order name: LFT's; Complete Time: 09: rn 01/01 08:40 Order name: Magnesium; Complete Time: 09: rn 01/01 08:40 Order name: NT PRO-BNP; Complete Time: 09:01/01 08:40 Order name: PT-INR; Complete Time: 09:01/01 08:40 Order name: Troponin HS; Complete Time: 09: rn 01/01 12:53 Order name: Troponin High Sensitivity; Complete Time: 12:54 [facility] 01/01 08:40 Order name: XRAY Chest (1 view); Complete Time: 09:42 rn 01/01 08:40 Order name: EKG; Complete Time: 08:41 rn 01/01 09:49 Order name: CONS Physician Consult [facility] 01/01 08:40 Order name: Cardiac monitoring; Complete Time: 08:01/01 08:40 Order name: EKG - Nurse/Tech; Complete Time: 08:01/01 08:40 Order name: IV Saline Lock; Complete Time: 08:01/01 08:40 Order name: Labs collected and sent; Complete Time: 08:01/01 08:40 Order name: O2 Per Protocol; Complete Time: 08:01/01 08:40 Order name: O2 Sat Monitoring; Complete Time: 08:51 rn EC:43 Rate is 79 beats/min. Rhythm is regular. QRS [place] is Normal. ID interval is prolonged rn at 274 msec. QRS interval is normal. QT interval is normal. No Q waves. T waves are Normal. No ST changes noted. Clinical impression: 1st degree heart block. Interpreted by me. Reviewed by me. Administered Medications: 09:42 Not Given (Systolic BP 1100): Nitroglycerin Sublingual 0.4 mg Sublingual once rn Disposition Summary: 01/01/23 09:31 Hospitalization Ordered Hospitalization Status: Observation rn Provider: Edi Aponte rn Location: Telemetry/MedSurg (observation) rn Condition: Stable rn Problem: new rn Symptoms: have improved rn Bed/Room Type: Standard rn Room Assignment: 211(01/01/23 13:32) bd Diagnosis - Chest pain, unspecified rn Forms: - Medication Reconciliation Form rn - SBAR form rn Signatures: Dispatcher [employer] EDYasemin Wilson Roman, MD MD rn Lewis, Lynsay, RIK RN ll1 Corrections: (The following items were deleted from the chart) 13:32 09:31 rn bd
--- NOTE | 2023-01-01 09:41 | RAD REPORT ---
EXAM DESCRIPTION: Itzel Single View01/01/2023 9:28 am CLINICAL HISTORY: Chest pain COMPARISON: 2021 FINDINGS: The lungs appear clear of acute infiltrate. The heart is normal size IMPRESSION: No acute abnormalities displayed
[2023-01-01] MEDS ORDERED: NITROGLYCERIN 0.4 MG/TAB SL ONE (09:49)
[2023-01-01] MEDS ORDERED: ONDANSETRON 4 MG/2 ML VIAL IV PRN (11:56)
[2023-01-01] MEDS ORDERED: MORPHINE 4 MG/ML SYR IV PRN (11:56)
[2023-01-01 12:06] VITALS: BMI 25.5
--- NOTE | 2023-01-01 17:07 | P.SSS ---
Patient History Date of Service: 01/01/23 Reason for admission: THROAT PAIN, R ARM PAIN, BP DROP AT HOME, HR DROP AT HOME . History of Present Illness: MAGDALENA HAS KNOWN A FIB BY HISTORY AND TAKES COREG PLUS FELCANIDE. HE HAS THROAT PAIN R SIDE FOR A WEEK AND HE WAS P[place] AND HAD BLACK OUT SPELL BUT HE DID NOT PASS OUT. HE SHOWED ME IS BP LOG AND BP HAS BEEN LOW AS90 SYSTOLIC AND HR DOWN TO 50. Allergies Ugeyhnj-LWF-CeE Reductase Inhibitor [Lbxhvbs-Acc-Ayx Reductase Inhibitor] Adverse Reaction (Verified 09/10/20 11:13) afib Home medications list reviewed: Yes Home Medications: Vit C/E/Zn/Coppr/Lutein/Zeaxan [Preservision Areds 2 Softgel] 1 each PO BID 04/14/19 Apixaban [Eliquis] 5 mg PO BID 01/01/23 Clopidogrel Bisulfate [Plavix] 75 mg PO DAILY 01/01/23 Dutasteride [Avodart] 0.5 mg PO DAILY 01/01/23 Flecainide Acetate 50 mg PO BID 01/01/23 Simvastatin 80 mg PO DAILY 01/01/23 Ubidecarenone/Vit E Acet [Co Q-10 100 mg Softgel] 1 tab PO DAILY 01/01/23 carvediloL [Carvedilol] 6.25 mg PO BID 01/01/23 - Past Medical/Surgical History Has patient received pneumonia vaccine in the past: Yes Diabetic: No -: Atrial fibrillation with cardioversion 08/15/19 -: Heart stent 03/2022 -: TURP 2015 -: B knee arthroplasty 2015 -: Hernia repair 2015 - Social History Smoking Status: Never smoker Alcohol use: No CD- Drugs: No Place of Residence: Home Review of Systems 10-point ROS is otherwise unremarkable General: Weakness Physical Examination - Vital Signs Temperature: 97.1 F Blood Pressure: 121/75 Pulse: 67 Respirations: 16 Pulse Ox (%): 100 - Physical Exam General: Alert, In no apparent distress HEENT: Atraumatic, PERRLA, Mucous membr. moist/pink, EOMI, Sclerae nonicteric Neck: Supple, 2+ carotid pulse no bruit, No LAD, Without JVD or thyroid abnor mality Respiratory: Clear to auscultation bilaterally, Normal air movement Cardiovascular: Regular rate/rhythm, Normal S1 S2 Gastrointestinal: Normal bowel sounds, No tenderness Musculoskeletal: No tenderness Integumentary: No rashes Neurological: Normal gait, Normal speech, Normal strength at 5/5 x4 extr, Normal tone, Normal affect Lymphatics: No axilla or inguinal lymphadenopathy - Studies Laboratory Data (last 24 hrs) 01/01/23 08:48: PT 17.0 H, INR 1.55 01/01/23 08:48: WBC 4.60, Hgb 15.0, Hct 45.2, Plt Count 179 01/01/23 08:48: Sodium 140, Potassium 3.7, BUN 23 H, Creatinine 0.98, Glucose 75, Magnesium 2.3, Total Bilirubin 0.9, AST 15, ALT 20, Alkaline Phosphatase 69 - Diagnosis (Problem(s)) (1) Orthostasis Current Visit: Yes Status: Acute Plan: I SUSPECT HIS BP DROP AND LOW HR ARE FROM COREG. REDUCE TH E DOSE TO HALF RAISE FLECANIDE TID HE STILL GETS PALPITATIONS OFF AND ON- A FIB. CONTINUE ELIQUIS. (2) Viral URI Current Visit: Yes Status: Acute Plan: CHECK FOR COVID. HE HAS MILD URI MOST LIKELY NEG. HE IS STABLE. HE HAS NO FEVER OR DYSPNEA. - Disposition Disposition: ROUTINE DISCHARGE
[2023-01-01] MEDS: FLECAINIDE 100 MG TAB PO SCH ×2 (17:45→20:38)
[2023-01-01] MEDS: carvediloL 6.25 MG TAB PO SCH (20:36)
[2023-01-01] MEDS: APIXABAN 5 MG TABLET PO SCH (20:38)
[2023-01-01] MEDS: OCUVITE (VIT A,C & E/LUTEIN/MINERAL) TABLET PO SCH (20:39)
[2023-01-01] MEDS ORDERED: FLECAINIDE 100 MG TAB PO SCH (21:00)
[2023-01-01] MEDS ORDERED: carvediloL 6.25 MG TAB PO SCH (21:00)
[2023-01-01 21:38] LABS: SARS-CoV-2 Antigen Rapid Res Negative (Negative)
[2023-01-02 04:02] LABS: Absolute Lymphocytes (CBC) 1.6 K/uL (0.7-4.9); Lymphocytes % 38.2 % (15.3-44.8); MCV 94.4 fL (80-100); MPV 7.3 fL (7.6-11.3); RBC Red Blood Cell Count 4.45 M/uL (4.33-5.43)
[2023-01-02 04:20] LABS: Potassium 4.2 mEq/L (3.5-5.1)
[2023-01-02 08:03] VITALS: BP 115/73; TEMP 97.7
[2023-01-02] MEDS: APIXABAN 5 MG TABLET PO SCH (08:59)
[2023-01-02] MEDS: OCUVITE (VIT A,C & E/LUTEIN/MINERAL) TABLET PO SCH (08:59)
[2023-01-02] MEDS ORDERED: UBIDECARENONE PO SCH (09:00)
[2023-01-02] MEDS ORDERED: VIT E ACET PO SCH (09:00)
[2023-01-02] MEDS ORDERED: DUTASTERIDE 0.5 MG GEL CAP PO SCH (09:00)
[2023-01-02] MEDS ORDERED: CLOPIDOGREL 75 MG TABLET PO SCH (09:00)
[2023-01-02] MEDS: carvediloL 6.25 MG TAB PO SCH (09:00)
[2023-01-02] MEDS ORDERED: SIMVASTATIN 80 MG PO SCH (09:00)
[2023-01-02] MEDS: FLECAINIDE 100 MG TAB PO SCH (09:02)
[2023-01-02 09:20] VITALS: O2SAT 97
--- NOTE | 2023-01-03 07:12 | EKG ---
Test Date: 2023-01-01 Test Time: 08:42:12 C Unix Developer: JD MEASUREMENT RESULTS: Intervals: Rate: 79 CO: 274 QRSD: 104 QT: 384 QTc: 440 [place]: P: 90 CO: 274 QRS: 34 T: 69 INTERPRETIVE STATEMENTS: Sinus rhythm with 1st degree AV block Otherwise normal ECG Compared to ECG 08/15/2019 09:06:11 First degree AV block now present Atrial premature complex(es) no longer present Electronically Signed On 01-03-23 07:07:15 CDT by Tae Brice
--- NOTE | 2023-01-03 12:31 | CON ---
Date of Consultation: 01/02/2023 Reason For Consultation: Chest pain and atrial fibrillation. History Of Present Illness: Mr. Serrano is 82. Has had a history of AFib, status post cardioversion i n the past. Has a history of CAD, status post stenting. Comes in with chest pain, atrial fibrillati on, only at a rate of 68. He had a stent in March 2022. Past Medical History: As stated above. Allergies: HE IS ALLERGIC TO STATIN. Review of Systems: Negative. Social History: Negative. Family History: Negative. Medications: At home include Eliquis, flecainide which was increased to 50 three times a day, Coreg which was decreased to 3.125 twice a day. He is on Plavix, Zocor, and Avodart. Physical Examination: Vital Signs: Atrial fibrillation, rate of 68, normal blood pressure. HEENT: Negative. Neck: Supple with no bruit. Chest: Clear. Cardiac: Revealed atrial fibrillation. Abdomen: Benign. Extremities: Revealed no clubbing, cyanosis, or edema. Diagnostic Data: Within normal limit. Impression And Plan: Recurrent atrial fibrillation. Flecainide was increased to 50 three times a da y. He becomes hypotensive with Coreg, so that was decreased to twice a day at 3.125. He will contin ue the Plavix, Zocor, Avodart, and Eliquis. I think we should highly consider him for an ablation an d possible pacemaker. I will continue the present regimen for now and see how he does with it. I wi ll see him in the office in the next week or 2. SWAPNA/CARA Voice ID: [id number] Report ID: [id number]
== END 2023-01-02 09:36 | disposition home or self-care (01) ==
LOC: ER 08:31 → ERHOLD 09:46 → 2ND 14:28
PROVIDERS: ADMIT Internal Medicine; ATTEND Internal Medicine
DX: I95.1 Orthostatic hypotension (principal); I48.11 Longstanding persistent atrial fibrillation; I25.10 Atherosclerotic heart disease of native coronary artery without angina pectoris; R07.9 Chest pain, unspecified; J06.9 Acute upper respiratory infection, unspecified; J02.9 Acute pharyngitis, unspecified; M79.601 Pain in right arm; Z79.01 Long term (current) use of anticoagulants; Z20.822 Contact with and (suspected) exposure to COVID-19; Z95.5 Presence of coronary angioplasty implant and graft
CPT/HCPCS: 93005; 85025 ×2; 80048 ×2; 36415 ×2; 83735; 85610; 80076; 84484 ×3; 83880; 87807; 87804 ×2; 71045; 99284; 87811; G0378 ×4